=== PATIENT | male | born 1965 | race Caucasian/White ===

== ENCOUNTER 2022-10-20 13:04 | Outpatient (OUT) | payer OTHER, SELFPAY ==
--- NOTE | 2022-10-20 | XR_ITS ---
The [address] [address] Patient Name: ALLYSSA BROWN MRN: [id number] date: 1965 Sex: M Assigned Patient Location: [facility] Current Patient Location: Accession/Order Number: [id number] Exam Date: 10/20/2022 14:12 Report Date: 10/21/2022 09:09 At the request of: JUAN PABLO Procedure: XR foot SERENE min 3V EXAMINATION: XR foot SERENE min 3V HISTORY: BILATERAL FOOT PAIN COMPARISON: No relevant comparison available. FINDINGS: RIGHT FINDINGS: BONES: Loss of plantar arch. Mild bunion formation without significant degenerative joint disease. SOFT TISSUES: No visible soft tissue swelling. OTHER: Negative. LEFT FINDINGS: BONES: Loss of plantar arch. Mild bunion formation without significant degenerative joint disease. SOFT TISSUES: No visible soft tissue swelling. OTHER: Negative. XR/XR foot SERENE min 3V IMPRESSION: RIGHT CONCLUSION: 1. Pes planus. 2. Mild bunion formation. LEFT CONCLUSION: 1. Pes planus. 2. Mild bunion formation. Electronically authenticated by: COLEEN KENNEDY Date: 10/21/2022 09:09
== END 2022-10-20 13:05 | disposition home or self-care (01) ==
LOC: RAD 13:04
PROVIDERS: Visit Provider Podiatrist Foot & Ankle Surgery
DX: M79.671 Pain in right foot (principal)
CPT/HCPCS: 73630

== ENCOUNTER 2023-02-24 08:45 | Outpatient (OUT) | payer OTHER, SELFPAY ==
[2023-02-24 09:31] LABS: Basophils Absolute Auto 0.1 10^3/uL (0.0-0.1); Basophils Percent Auto 0.9 % (0.2-2.0); Eosinophils Absolute Auto 0.2 10^3/uL (0.0-0.7); Eosinophils Percent Auto 2.9 % (0.9-7.0); Hematocrit 38.8 % (42.0-54.0); Hemoglobin 12.7 g/dL (14.0-18.0); Immature Granulocytes Abs Auto 0.02 10^3/uL (0.00-0.03); Immature Granulocytes Pct Auto 0.3 % (0.0-0.5); Lymphocytes Absolute Auto 1.4 10^3/uL (1.2-3.8); Mean Corpuscular HGB Conc 32.7 g/dL (29.9-35.2); Mean Corpuscular Hemoglobin 29.7 pg (25.9-34.0); Mean Corpuscular Volume 90.7 fL (80.0-94.0); Mean Platelet Volume 8.9 fL (9.5-13.5); Monocytes Absolute Auto 0.8 10^3/uL (0.3-0.8); Monocytes Percent Auto 12.5 % (1.7-12.0); Neutrophils Percent Auto 62.4 % (43.0-75.0); Platelet Count 215 10^3/uL (150-450); Red Blood Count 4.28 10^6/uL (4.70-6.10); Red Cell Distribution Width 13.5 % (11.0-15.0); White Blood Count 6.5 10^3/uL (4.0-11.0)
[2023-02-24 09:47] LABS: BUN Creatinine Ratio 14.4; Calcium 9.3 mg/dL (8.5-10.1); Carbon Dioxide 26.4 mmol/L (21.0-32.0); Chloride 102 mmol/L (98-107); Estimated GFR (African America >60 (>=60); Estimated GFR (Non-African Ame 60 (>=60); Glucose 103 mg/dL (74-106); Potassium 4.4 mmol/L (3.5-5.1); Sodium 138 mmol/L (136-145)
[2023-02-24 09:58] LABS: INR 1.03; Partial Thromboplastin Time 34.8 sec (22.3-36.2); Prothrombin Time 10.9 sec (9.0-11.6)
--- NOTE | 2023-02-24 09:59 | P.GSHP_ITS ---
History of Present Illness History of Present Illness Chief complaint: Hallux valgus left foot Narrative: Patient presents for preadmission testing. The patient reports a long history of bilateral foot pain due to bunion deformities. The patient states he has tried padding the area and wearing different footwear with no relief of the symptoms. He does occasionally take ibuprofen with no relief. He denies numbness, tingling, or weakness. The patient has an extensive cardiac history which I have documented in the EMR, he denies dyspnea on exertion but he does admit to fatigue. We did originally receive a cardiac clearance for this patient dated January 06, however he had an office visit with his quality assurance tech on January 27 which did not mention clearance for surgery and in fact stated that because of his loss of energy and shortness of breath and because he has severe mitral regurgitation they would like to send him to [facility] for an opinion regarding his mitral valve disease, they are referring him to structural heart and awaiting an opinion. Review of Systems ROS Narrative REVIEW OF SYSTEMS: Negative except as stated in HPI, ten or more systems reviewed. Constitutional: No fever , chills, weakness ENT: No sore throat or epistaxis Cardiovascular: No edema, chest pain, or palpitations Respiratory: No cough or wheezing Gastrointestinal: No abdominal pain, constipation, diarrhea, or vomiting Genitourinary: No dysuria or hematuria Neurological: No numbness, tingling, weakness, or headache Psychiatric: No mood changes [facility] Medical History (Updated 02/24/23 @ 09:58 by Casandra Jarquin NP) Hallux valgus ?M20.10 - Hallux valgus (acquired), unspecified foot (ICD-10) Hallux rigidus ?M20.20 - Hallux rigidus, unspecified foot (ICD-10) Fatigue ?R53.83 - Other fatigue (ICD-10) Mild pulmonary hypertension ?I27.20 - Pulmonary hypertension, unspecified (ICD-10) Sick sinus syndrome ?I49.5 - Sick sinus syndrome (ICD-10) Cardiomyopathy ?I42.9 - Cardiomyopathy, unspecified (ICD-10) Hyperlipidemia ?E78.5 - Hyperlipidemia, unspecified (ICD-10) Hypertension ?I10 - Essential (primary) hypertension (ICD-10) Implantable cardioverter-defibrillator (ICD) in situ (04/16/21) ?Z95.810 - Presence of automatic (implantable) cardiac defibrillator (ICD-10) Implanted cardiac defibrillator infection (~05/2020) ?T82.7XXA - Infection and inflammatory reaction due to other cardiac and vascular devices, implants and grafts, initial encounter (ICD-10) Sepsis (~05/2020) ?A41.9 - Sepsis, unspecified organism (ICD-10) Sustained ventricular tachycardia (05/14/20) ?I47.20 - Ventricular tachycardia, unspecified (ICD-10) Severe left ventricular systolic dysfunction (LVSD) (05/06/20) ?I51.9 - Heart disease, unspecified (ICD-10) Renal insufficiency (~01/2020) ?N28.9 - Disorder of kidney and ureter, unspecified (ICD-10) Atrial fibrillation ?I48.91 - Unspecified atrial fibrillation (ICD-10) Acute on chronic congestive heart failure (02/06/20) ?I50.9 - Heart failure, unspecified (ICD-10) Atrial flutter ?I48.92 - Unspecified atrial flutter (ICD-10) Severe mitral regurgitation ?I34.0 - Nonrheumatic mitral (valve) insufficiency (ICD-10) Mitral valve prolapse ?I34.1 - Nonrheumatic mitral (valve) prolapse (ICD-10) Paroxysmal atrial fibrillation ?I48.0 - Paroxysmal atrial fibrillation (ICD-10) Anemia ?D64.9 - Anemia, unspecified (ICD-10) COVID-19 ?U07.1 - COVID-19 (ICD-10) Hypothyroidism ?E03.9 - Hypothyroidism, unspecified (ICD-10) Nasopharyngeal cancer (2020) ?C11.9 - Malignant neoplasm of nasopharynx, unspecified (ICD-10) Encounter for cardioversion procedure ?Z01.89 - Encounter for other specified special examinations (ICD-10) History of cardioversion ?Z92.89 - Personal history of other medical treatment (ICD-10) Cardiac defibrillator in place (05/14/20) ?Z95.810 - Presence of automatic (implantable) cardiac defibrillator (ICD-10) Surgical History (Updated 02/24/23 @ 09:57 by Casandra Jarquin NP) History of cholecystectomy ?Z90.49 - Acquired absence of other specified parts of digestive tract (ICD- 10) H/O cardiac catheterization (05/06/20) ?Z98.890 - Other specified postprocedural states (ICD-10) H/O cardiac catheterization (09/18/14) ?Z98.890 - Other specified postprocedural states (ICD-10) History of colonoscopy ?Z98.890 - Other specified postprocedural states (ICD-10) History of cardiac radiofrequency ablation (05/28/16) ?Z98.890 - Other specified postprocedural states (ICD-10) History of cardiac radiofrequency ablation (01/04/17) ?Z98.890 - Other specified postprocedural states (ICD-10) History of spinal surgery ?Z98.890 - Other specified postprocedural states (ICD-10) History of spinal surgery ?Z98.890 - Other specified postprocedural states (ICD-10) Family History (Updated 02/24/23 @ 09:11 by Casandra Jarquin NP) Other Atrial fibrillation Family history of heart disease Social History (Updated 02/24/23 @ 09:07 by Casandra Jarquin NP) Within the past year, how often did you have a drink containing alcohol: monthly or less Smoking status: Never smoker Non-prescribed substance use: denies use Previous occupational history: [employer] Highest level of school completed/degree received: high school graduate Meds Home Medications and Allergies Home Medications Medication Instructions Recorded Confirmed Type amiodarone 200 mg tablet 200 mg PO DAILY 02/24/23 02/24/23 History apixaban 5 mg tablet (Eliquis) 5 mg PO BID 02/24/23 02/24/23 History cholecalciferol (vitamin D3) 25 25 mcg PO DAILY 02/24/23 02/24/23 History mcg (1,000 unit) capsule hydralazine 25 mg tablet 25 mg PO DAILY 02/24/23 02/24/23 History levothyroxine 50 mcg tablet 50 mcg PO DAILY 02/24/23 02/24/23 History magnesium oxide mg 02/24/23 History magnesium oxide 400 mg (241.3 mg 400 mg PO DAILY 02/24/23 02/24/23 History magnesium) tablet metoprolol tartrate 25 mg tablet 25 mg PO DAILY 02/24/23 02/24/23 History mexiletine 150 mg capsule 150 mg PO Q12H 02/24/23 02/24/23 History Allergies Allergy/AdvReac Type Severity Reaction Status Date / Time Penicillins Allergy Unknown Verified 02/24/23 09:04 Exam Narrative Exam Narrative: Constitutional: Awake, alert, comfortable, well-appearing, nontoxic, interactive, vital signs as charted Head: Normocephalic, atraumatic Neck: Supple, normal appearance, normal range of motion, no meningeal signs, no lymphadenopathy Respiratory: No respiratory distress, breath sounds clear Cardiovascular: Regular rate, irregular rhythm, very prominent murmur Musculoskeletal: Obvious hallux valgus deformity left foot with tenderness over the 1st MTP joint, Good capillary refill, sensation intact Skin: No rashes or induration, no lesions, only visible skin inspected Neuro: No neurological deficits, normal sensation Psychiatric: Oriented ?3, normal affect Assessment and Plan Assessment and Plan (1) Hallux valgus: (2) Hallux rigidus: Plan Left 1st MTP joint fusion with bone graft as needed scheduled with Dr. Jansen 03/10/2023. At this time I have requested an additional cardiac clearance dated after January 27.
== END 2023-02-24 08:46 | disposition home or self-care (01) ==
LOC: PST 08:48
PROVIDERS: Visit Provider Podiatrist Foot & Ankle Surgery
DX: Z01.812 Encounter for preprocedural laboratory examination (principal); Z01.818 Encounter for other preprocedural examination; M20.12 Hallux valgus (acquired), left foot; M20.22 Hallux rigidus, left foot
CPT/HCPCS: 80048; 85025; 85610; 85730; G0463